=== PATIENT | female | born 1940 | race Caucasian/White ===

== ENCOUNTER 2017-12-17 10:30 | Outpatient (RCR) | payer OTHER | END 2018-01-12 | disposition home or self-care (01) | LOC: PTY 10:30 | DX: S39.012D Strain of muscle, fascia and tendon of lower back, subsequent encounter (principal) | CPT/HCPCS: 97110; 97140; 97162; G0283 ==

== ENCOUNTER 2018-01-18 13:05 | Outpatient (RCR) | payer OTHER | END 2018-02-12 | disposition home or self-care (01) | LOC: PTY 13:05 | DX: S39.012D Strain of muscle, fascia and tendon of lower back, subsequent encounter (principal) | CPT/HCPCS: 97110; 97140; G0283 ==